=== PATIENT | female | born 1990 | race Caucasian/White ===

== ENCOUNTER 2016-05-06 14:55 | Emergency (ER) | payer OTHER ==
[2016-05-06 16:24] LABS: HEMOGLOBIN 14.2 gm/dl (12.3-15.3); RED BLOOD COUNT 4.51 M/UL (4.00-5.10); WHITE BLOOD COUNT 6.5 K/UL (4.5-11.0)
[2016-05-06 16:36] LABS: BUN/CREATININE RATIO 20 (0-10)
== END 2016-05-06 17:00 | disposition home or self-care (01) ==
LOC: ER1 14:55
PROVIDERS: Nurse Practitioner Family
DX: N39.0 Urinary tract infection, site not specified (principal); F17.210 Nicotine dependence, cigarettes, uncomplicated
CPT/HCPCS: 36415; 80053; 81001; 82150; 83605; 83690; 84703; 85025; 87077; 87086; 87186; 96374; 99284; J2405

== ENCOUNTER 2016-07-19 21:24 | Emergency (ER) | payer OTHER | END 2016-07-20 00:52 | disposition home or self-care (01) | LOC: ER1 21:24 | DX: S83.92XA Sprain of unspecified site of left knee, initial encounter (principal); F17.210 Nicotine dependence, cigarettes, uncomplicated; Z91.013 Allergy to seafood; X58.XXXA Exposure to other specified factors, initial encounter | CPT/HCPCS: 29505; 73552; 73564; 73590; 99283 ==